=== PATIENT | male | born 1945 | race Caucasian/White ===

== ENCOUNTER → 2018-02-01 08:20 | Outpatient (POV) | payer MEDICARE, SELFPAY | PROVIDERS: Family Provider Family Medicine; PCP Family Medicine; Visit Provider Nurse Practitioner Acute Care | DX: Z00.00 Encounter for general adult medical examination without abnormal findings (principal) ==

== ENCOUNTER → 2018-05-14 12:47 | Outpatient (CLI) | payer MEDICARE, SELFPAY ==
--- NOTE | 2018-05-14 13:12 | US_ITS ---
US thyroid HISTORY: ITS.REASON: ENLARGED THYROID PER [facility] ORDERING PHYSICIAN: Madhav Conway MD PATIENT AGE: 73 years Comparison: None FINDINGS: The right lobe is 4.4 x 1.2 x 1.8 cm. The left lobe is 5.3 x 2.4 x 2.2 cm. Both lobes of the thyroid gland has a spongiform appearance with innumerable small cystic areas. Bilateral spongiform-appearing nodules are present including a 9 mm nodule in the upper pole on the right, 21 x 14 mm nodule mid pole on the right and 10 mm spongiform nodule in the lower pole on the right. On the left there is a 24 mm spongiform-appearing nodule in the upper pole of 34 mm spongiform. Nodule in the mid polar region. IMPRESSION: Enlarged thyroid gland with bilateral spongiform nodules having a [place] cheese appearance
== END ==
PROVIDERS: Family Provider Family Medicine; PCP Family Medicine; Visit Provider Otolaryngology
DX: E01.0 Iodine-deficiency related diffuse (endemic) goiter (principal)
CPT/HCPCS: 76536

== ENCOUNTER → 2018-05-31 09:21 | Outpatient (CLI) | payer MEDICARE, SELFPAY ==
--- NOTE | 2018-05-31 09:29 | US_ITS ---
FNA biopsy FNA w guidance, US thyroid, US organ site (thyroid) Ordering Physician: Madhav Conway MD Patient Age: 73 years: Male HISTORY: ITS.REASON: LEFT THYROID NODULE TECHNIQUE: Ultrasound of thyroid followed by left lobe ultrasound-guided biopsy FINDINGS AND PROCEDURE: ========= ULTRASOUND bilateral gland left upper lobe nodular density The patient has diffuse spongiform appearance throughout the thyroid both right and left lobe, suspect reflecting multinodular changes or possibly prior thyroiditis a . At upper pole the left lobe there is area which has a border and although similar spongiform character it was considered a separate nodule on previous imaging is again identified today at upper pole the left lobe which. This region spans roughly 2.4 cm in length cm at the upper pole left lobe. This was targeted and is actually merchandising representative of the other spongiform areas throughout the gland .These images also determined the best approach for access to perform aspiration biopsy of this nodule. Scanning by Dr. Bojorquez ======== ULTRASOUND-GUIDED FNA BIOPSY upper pole left lobe, area of nodularity Following sterile preparation as well as local skin, and cautious deeper placement of Xylocaine anesthetic . Under ultrasound guidance the biopsy needle, was advanced to the nodule and positioned. Needle tip was observed passing into the nodule on each of multipleFNA biopsies passes. A total of 4 passes performed. Generous Material was obtained. The FNA specimen material obtained and subsequently submitted to cytopathology. Patient tolerated procedure well. IMPRESSION: Successful fine-needle aspiration biopsy is somewhat nodular area at upper pole left lobe. I would note that this nodule at the upper pole right lobe has same spongiform character as seen throughout the remainder the gland. Only slightly Slightly separate by margin. CYTOPATHOLOGY benign results... Compatible with benign goiter versus follicular nodule [facility]. Pathology report
== END ==
PROVIDERS: Family Provider Family Medicine; PCP Family Medicine; Visit Provider Otolaryngology
DX: E07.9 Disorder of thyroid, unspecified (principal); E04.9 Nontoxic goiter, unspecified; E04.1 Nontoxic single thyroid nodule
CPT/HCPCS: 10022; 76536; 88173

== ENCOUNTER → 2018-06-08 11:24 | Outpatient (CLI) | payer MEDICARE, SELFPAY | PROVIDERS: Visit Provider Urology | DX: Z12.5 Encounter for screening for malignant neoplasm of prostate (principal); N40.2 Nodular prostate without lower urinary tract symptoms | CPT/HCPCS: 36415; G0103 ==

== ENCOUNTER → 2018-08-17 15:20 | Outpatient (CLI) | payer MEDICARE, SELFPAY ==
--- NOTE | 2018-08-17 15:21 | US_ITS ---
US thyroid HISTORY: ITS.REASON: thyroid nodule, abnormal thyroid ultrasound follow-up ORDERING PHYSICIAN: Madhav Conway MD PATIENT AGE: 73 years Comparison: 05/14/2018 FINDINGS: The right lobe is 4.5 x 1.5 x 2 cm. There is a complex cystic lesion in the upper pole at 1 x 0.6 cm similar to the previous exam. 22 mm spongiform nodular density mid polar region unchanged 10 mm spongiform nodule lower pole unchanged. The left lobe is 5.2 x 1.8 x 2 cm. 26 x 14 mm spongiform nodule superiorly unchanged 33 x 20 mm spongiform nodule mid to lower pole and change. IMPRESSION: No change enlarged thyroid gland with multiple spongiform nodules
== END ==
PROVIDERS: Family Provider Family Medicine; PCP Family Medicine; Visit Provider Otolaryngology
DX: E04.9 Nontoxic goiter, unspecified (principal)
CPT/HCPCS: 76536

== ENCOUNTER → 2018-08-23 09:16 | Outpatient (POV) | payer MEDICARE, SELFPAY | PROVIDERS: Family Provider Family Medicine; PCP Family Medicine; Visit Provider Nurse Practitioner Acute Care | DX: Z00.00 Encounter for general adult medical examination without abnormal findings (principal) ==

== ENCOUNTER → 2018-11-29 14:06 | Outpatient (POV) | payer MEDICARE, SELFPAY | PROVIDERS: Visit Provider Nurse Practitioner Acute Care | DX: Z00.00 Encounter for general adult medical examination without abnormal findings (principal) ==

== ENCOUNTER → 2018-12-07 12:27 | Outpatient (CLI) | payer MEDICARE, SELFPAY ==
[2018-12-07 14:18] LABS: Prostate Specific Ag, Diagnost 2.63 ng/mL (0.0-4.0)
== END ==
PROVIDERS: Visit Provider Urology
DX: N40.2 Nodular prostate without lower urinary tract symptoms (principal)
CPT/HCPCS: 36415; 84153